=== PATIENT | female | born 1940 | race Caucasian/White ===

== ENCOUNTER 2017-01-27 10:57 | Emergency (ER) | payer OTHER, MEDICARE ==
--- NOTE | 2017-01-28 16:19 | ER ---
ADMIT: 01/27/2017 RM/LOC: ER [facility] MR#: [id number] [place], [place] [id number] JOE WILLETT [address] [place] [id number] Emergency Room Report SEX: F AGE: 76 : 1940 DATE: 01/27/2017 BRIEF ADDENDUM: Please see my T-sheet for complete review of systems, past medical history, and physical exam. CHIEF COMPLAINT: Injury to left hand. HISTORY OF PRESENT ILLNESS: This is a pleasant 76-year-old, white female, who presents after sustaining a fall at [employer]. The patient states she tripped on a curb and fell on an outstretched left hand. Denies striking her head. She does have a history of atrial fibrillation on Pradaxa. Primarily states she has pain in her left 3rd and 4th fingers. She also does have a cut on the 3rd finger of the left hand. Denies any fever, problems with vision, neck pain, shortness of breath, nausea, or vomiting. Does state she has a slight headache but thinks this is secondary to crying and some anxiety. COURSE IN THE EMERGENCY ROOM: The patient was seen and examined. She is in no acute distress. She does have swelling, ecchymosis, and limited motion of the 3rd and 4th fingers on the left hand. No evidence of injury about the elbow or shoulder. Did get x-rays of the left hand negative for any acute fractures. She does have some numbness and tingling in the 3rd and 4th fingers, which I think is likely secondary to the swelling. No vascular compromise. Cap refill is brisk. Distally, I did anesthetize her with lidocaine. Strength was re-evaluated. She does have extension and flexion intact in both fingers. PROCEDURE NOTE: This is a 3rd left finger laceration repair. There is a 2 cm linear laceration to the 3rd left finger about the PIP joint and was anesthetized digital block fashion with 4 mL of 1% lidocaine without epinephrine. After anesthesia was achieved, the wound was cleaned with saline and prepared with Betadine and closed with 5-0 Prolene sutures. Wound edges were well everted and wound was dressed. IMPRESSION: ADMIT: 01/27/2017 RM/LOC: ER [facility] MR#: [id number] [address] [id number] JOE WILLETT [address] [place] [address] Emergency Room Report SEX: F AGE: 76 : 1940 1. Third left finger laceration. 2. Third and 4th metacarpophalangeal sprain. 3. Third and 4th proximal interphalangeal sprain. DISPOSITION: The patient is to keep the wound clean and dry. Wash daily with warm soapy water. Follow up with Dr. Solorzano in a week for suture removal. I did encourage her yasmani tape the fingers as needed for monitor for any signs and symptoms of infection. Follow up with Dr. Solorzano as necessary. Activity as tolerated. Continue all home medications. Return with any worsening signs or symptoms. Tylenol as needed for pain. Rest, ice, compress, elevate. Questions sought and answered to the best of my ability and to the patient's satisfaction. Discharged in stable condition. CELINA Banuelos / Cisco Gibbons MD / jollyl JOB #: [id number] CC: Cisco Gibbons MD, Attending Physician Valerie Solorzano MD, Family Physician
== END 2017-01-27 13:04 | disposition home or self-care (01) ==
LOC: ER 10:57
PROC: 0HQGXZZ Repair Left Hand Skin, External Approach (ICD-10-PCS; principal; 2017-01-27)
DX: S61.213A Laceration without foreign body of left middle finger without damage to nail, initial encounter (principal); S63.653A Sprain of metacarpophalangeal joint of left middle finger, initial encounter; S63.655A Sprain of metacarpophalangeal joint of left ring finger, initial encounter; S63.633A Sprain of interphalangeal joint of left middle finger, initial encounter; S63.631A Sprain of interphalangeal joint of left index finger, initial encounter; W01.0XXA Fall on same level from slipping, tripping and stumbling without subsequent striking against object, initial encounter; Y92.481 Parking lot as the place of occurrence of the external cause